=== PATIENT | male | born 1985 | race Caucasian/White ===

== ENCOUNTER 2022-05-17 06:20 | Emergency (ER) | payer MEDICAID ==
--- NOTE | 2022-05-17 08:24 | NUR ---
COVID SWAB COLLECTED AND TAKEN TO LAB.
--- NOTE | 2022-05-17 08:28 | NUR ---
Pt is medically cleared by Dr Summers for [facility].
--- NOTE | 2022-05-17 08:30 | NUR ---
Ksenia, aquacultural worker supervisor at the bedside speaking to pt.
[2022-05-17 09:04] LABS: HEMATOCRIT 41.7 % (36.7-47.1); MEAN CORPUSCULAR HEMOGLOBIN 29.5 uug (23.8-33.4); MEAN CORPUSCULAR VOLUME 88.4 fL (73.0-96.2); PLATELET COUNT (AUTO) 257 K/uL (152-348)
--- NOTE | 2022-05-17 09:09 | NUR ---
Patient given written and verbal discharge instructions. Patient verbalizes understanding of instructions. Patient is ambulatory with steady gait. Refuses offer of skilled nursing placement. Patient given list of available shelters in surrounding area.
[2022-05-17 09:24] LABS: *AMPHETAMINE, URINE POSITIVE (NEGATIVE); *CANNABINOID, URINE POSITIVE (NEGATIVE); *COCCAINE, URINE NEGATIVE (NEGATIVE); *PHENCYCLIDINE SCREEN,URINE NEGATIVE (NEGATIVE)
--- NOTE | 2022-05-17 09:24 | NUR ---
Social work consult was requested for a patient in the emergency room for homeless and substance abuse resources. Patient is 37-year-old black male. Patient is alert and oriented X3. Patient could not state the date. Patient presents with anxious mood and congruent affect. Patient was cooperative throughout assessment. Patient states his primary contact is his cousin, Israel Herrera ([phone]) and he is currently living in [place]. Patient states he has been homeless for a couple of years in [place], but has been living with his friend, Kelli, at her house in [place]. MELLISA provided the patient resources and gave him the information for [facility] [address] [place] [address] ([phone]) and [facility] [address] [facility] [address] ([phone]). MELLISA gave resources for [facility] [address] [address]. Resources were placed in the chart. Homeless waiver was signed and given to the patient and a copy was placed in the chart. 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 Patient states that he has a history of substance abuse. There is no toxicology report. Patient states that he smokes weed and uses meth. Patient states the last time he used meth was two days ago. Patient states he uses meth to stay awake but can stop at any time. SW intervened and educated patient regarding the harmful effects of meth. MELLISA provided the patient resources and referrals for substance use from [address] [address] ([phone]), [facility] [address] [facility] [address] ([phone]), and [address] [address] ([phone]). Patient appeared appreciative of resources. Patient appeared motivated about getting treatment from the resources provided. Resources were placed in the chart. Patient states he has a history of anxiety and depression. Patient states he has never seen a therapist. SW provided emotional support, validation and coping strategies. Patient denies suicidal or homicidal ideation. Patient appears paranoid about people following him because he owes them money. Patient denies visual or auditory hallucinations or delusions. MELLISA provided the patient with the mental health walk in resource at [facility] [address] [place] [address] ([phone]). Patient states he is open to going to [facility] at discharge. MELLISA provided the patient with a TAP card at discharge.
[2022-05-17 09:30] LABS: *BILIRUBIN,URIN NEGATIVE (NEGATIVE); *BLOOD, URINE NEGATIVE (NEGATIVE); *CLARITY,URINE CLEAR (CLEAR); *COLOR,URINE YELLOW (YELLOW); *KETONES,URINE NEGATIVE (NEGATIVE); BACTERIA,URINE FEW /HPF (NONE SEEN); LEUKOCYTE ESTERASE ,URINE NEGATIVE (NEGATIVE); NITRITE, URINE NEGATIVE (NEGATIVE); RBC,URINE 0-3 /HPF (0-3); SQUAMOUS EPITHELIAL CELL,UR FEW /HPF (NONE SEEN); UGLUCOSE NEGATIVE (NEGATIVE); WBC,URINE 0-3 /HPF (0-3)
[2022-05-17 09:33] LABS: ALANINE AMINOTRANSFERASE 233 U/L (16-63); ALKALINE PHOSPHATASE 44 U/L (50-136); ASPARTATE AMINOTRANSFERASE 120 U/L (15-37); BILIRUBIN,TOTAL 0.8 mg/dL (0.2-1.0); CARBON DIOXIDE 30 mmol/L (21-32); CHLORIDE 103 mmol/L (98-107); CREATININE 1.2 mg/dL (0.6-1.3); GLUCOSE 103 mg/dL (74-106); POTASSIUM 4.6 mmol/L (3.5-5.1); TOTAL PROTEIN, SERUM 8.2 g/dL (6.4-8.2); UREA NITROGEN, BLOOD 19 mg/dL (7-18)
[2022-05-17 09:34] LABS: ACETAMINOPHEN < 2.0 ug/mL (10-30)
[2022-05-17 09:35] LABS: ETHANOL < 3 MG/DL (0-0)
== END 2022-05-17 09:10 | disposition home or self-care (01) ==
LOC: ER 06:20
DX: R45.851 Suicidal ideations (principal); F29 Unspecified psychosis not due to a substance or known physiological condition; F31.9 Bipolar disorder, unspecified; F20.9 Schizophrenia, unspecified; Z20.822 Contact with and (suspected) exposure to COVID-19; Z59.02 Unsheltered homelessness
CPT/HCPCS: 36415; 85025; A4663; G0480